=== PATIENT | female | born 1970 | race Caucasian/White ===

== ENCOUNTER 2017-04-25 09:00 | Outpatient (RCR) | payer OTHER, SELFPAY ==
--- NOTE | 2017-04-25 11:54 | HP.OTFCE_ITS ---
HP OT Functional Capacity Eval - Task Lift Floor (Occasional 1-33% of Day): 15 lbs Floor (Frequent 34-66% of Day): 8 lbs Floor (Constant 67-100% of Day): negligible Floor PDL: Sedentary-Light Knee (Occasional 1-33% of Day): 15 lbs Knee (Frequent 34-66% of Day): 8 lbs Knee (Constant 67-100% of Day): negligible Knee PDL: Sedentary-Light Waist (Occasional 1-33% of Day): 15 lbs Waist (Frequent 34-66% of Day): 8 lbs Waist (Constant 67-100% of Day): negligible Waist PDL: Sedentary-Light Shoulder (Occasional 1-33% of Day): 15 lbs Shoulder (Frequent 34-66% of Day): 8 lbs Shoulder (Constant 67-100% of Day): negligible Shoulder PDL: Sedentary-Light Overhead (Occasional 1-33% of Day): 15 lbs Overhead (Frequent 34-66% of Day): 8 lbs Overhead (Constant 67-100% of Day): negligible Overhead PDL: Sedentary-Light Comments: Katia exhibits poor body mechanics and has increased pain (typically R side). Safety concerns with some of the tasks. Further details can be seen in sections below. - Work Activity/Posture Bending: Occasional Ability (1-33% of day) Squatting: Occasional Ability (1-33% of day) Comments: poor mechanics and safety concerns Kneeling: No Ablility (0% of day) Comments: safety concerns Reaching out: Frequent Ability (34-66% of day) Reaching up: Frequent Ability (34-66% of day) Sitting: Frequent Ability (34-66% of day) Walking: Occasional Ability (1-33% of day) Comments: seated break every 4 mins; 1-15% of day. Standing: Occasional Ability (1-33% of day) - Reference Duration Sedentary Sedentary Light Light Light Medium Medium Medium Heavy Very Heavy Heavy Occasional (0-33% of day) Frequent (34-66% of day) Constant (67-100% of day) 10 # Negligible Negligible 15 # 8 # Negligible 20 # 10# Negli. 35 # 18 # 7 # 50 # 25 # 10 # 75 # 100 # >100 # 38 # 50 # >50 # 15 # 20 # >20 # - Patient Information Height: 1.68 m Weight:: 165 kg Hand Dominance: R - Medical History Medical History Including Restrictions: Notes no medical restrictions given by doctor. She is to do what she can per Pt. report. - Diagnoses Diagnoses: PMHx: chronic low back pain, cervical pain, spinal stenosis, dengenerative joint disease, sciatica (numbness of R leg), bulging discs at L1, rotator cuff surgery R shoulder, tendon surgery R shoulder, restless legs, osteoporosis, orthostatic hypotension and syncope, postural orthostaic tachycardia, neuropathy R leg. PMHx per Pt. report. - Symptoms Symptoms: Pt. noted pain symptoms pain in low back, neck , between shoulder blades, and B shoudler. She notes numbness in R LE over thigh and notes at times goes down calf. Further explains she has R sided neuropathy in LE. - Pain Pain: Pt. rated pain at 8/10 start of session. She noted pain is worse morning and night. She notes she cannot lay down to sleep. She sleeps in recliner and when reclined she notes pain is best. She did take pain meds prior to coming in for FCE. She noted she took oxycodon 8:15 am. Pain increased to 9, then 10/10 pain. Consistently educated to complete as tolerated. Tasks adapted so she could complete paced t/o session. Pain significant at this time. 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 She noted she quit nursing in 2010 due to pain and inability to complete work tasks. She notes she no longer felt safe. 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 - Behavioral Behavioral: Gabby became emotional during session because of pain. She was willing to participate in most tasks and consisently educated to complete tasks within pain tolerance. She notes pain prior to session starting at 8/10 with pain meds. Pain increased to 10/10 and then decreased at 9/10 by end of session. - ADLS ADLS: Pt. lives in house with in split level home. She notes 1 step to get into home with handrails on both sides. SHe then has 1 steps to get to first level and then 4 steps to get to second level for bedroom and bathroom. No bathroom on first floor. SHe notes (I) in ADLs and her and share cooking chores. She notes that it is dependent on the day for grocery shopping, laundry, and driving but it otherwise (I) with simple IADls at this time. She notes she needs to pace herself with all tasks. Katia shares pet care with . She explained she tries to walk yard/field but has increased pain at this time pain due to uneven surface. She is completeing walking (I) at this time. - Physical Examination Physical Examination: Pt, Katia, arrived for FCE on this date. She exhibits some R sided weakness and foot drop on occasion during fx mobility and other tasks. She noted PMHx of nueropathy in R LE in which foto drop appears could be related too. Pain is severe in LB and R hip and radiates down R LE. She exhibits balance G-/F+. She notes having recieved PT services through [facility] for back and neck. She would benefit from benefits specialist recruiter consult as pain is limiting QOL and fx at this time. She may benefit from vocational rehab in the future as she will not be able to return to nursing or jobs that require sustained standing or lifitng t/o the day based on today's performance. ROM: Pt. noted rotator cuff surgery 2006. B UE is WFL. She has decreased ROM on R UE due to PMH of rotator cuff. Shoulder flexion R 0-114, L 0-142; B UE WFL in all planes. B LUE WFL. Strength: B UE strength: deltoid: R 3+/5, L 4/5. bicep: R 4-/5, L 4/5. tricep : R 4-/5, L 4/5. wrist extensors: R 4/5, L 4/5. wrist flexors: R 4/5, L 4/5. B LE : Hip flexors: R 3+/5, L 4/5. Quadraceps: R 3+/5, L 4/5. hamstrings: R 3 +/5, L 4/5. hip abductors R 4-/5, L 4/5. hip adductors:R 4-/5, L 4/5. dorsiflexion: R 4+/5, L 4+/5. Pt. completed with right sided discrepancy. She is able to take minimal resistance prior to breaking. Notes increased pain with LE with resistance tasks. Pain rated 8.5/10 post MMT. Right Vacation Sales Advisor Strength Average: 54.66 Right Vacation Sales Advisor Strength Percentile: 13th Left Vacation Sales Advisor Strength Average: 68.33 Left Vacation Sales Advisor Strength Percentile: 36 th Right Lateral Pinch Average: 8.00 Right Lateral Pinch Percentile: below 10th Left Lateral Pinch Average: 10.00 Left Lateral Pinch Percentile: 25th Right Tripod Pinch Average: 11.00 Right Tripod Pinch Percentile: above 25th below 50th Left Tripod Pinch Average: 10.66 Left Tripod Pinch Percentile: above 25th below 50th Sensation: Notes numbness and tingling in R hand at times mostly to ring and pinky fingers. She notes numbness and tingling in R leg(mostly) and L leg when standing too long. Sensation for B UE is as follows through monofilament test: R 2nd 3.22 3rd 2.83 4th 3.61 5th 3.22 thumb 3.61 , L 2nd 2.83 3rd 2.83 4th 2.83 5th 2.83 thumb 2.83. Scores of 2.83 are normal and 3.22-3.61 indicate dimished light touch. Katia has slight decreased sensation of L hand but WFL at this time. Fine Motor: Pt. FMC is intact and WFL. 9 hole pegboard test R 22.43 (25th percentile) , L 28.36 (10th percentile). Balance: Pt. exhibits decreased balance when standing on R leg only. Balance is G/f+ and she ambulates without device at this time. - Non Material Handling Activities Bendinx, got light headed and needed seated break, 6x needed seated break due to back and notes head swimming. 10x fast with poor body mechanics due to compensations because of pain. Pain 10/10. Became emotional during task due to pain. Educated to complete within pain tolerance and take breaks as needed. verbalzied understanding. Squattinx, standing break. Needed use of external support of desk. Poor body mechanics with use of L lateral leaning of trunk and L UE to completed task. R UE not stable. Emotional due to pain. Pain noted at 10/10. Seated break needed. Kneeling: Pt. unable at this time. Completed 1x noted this is not going to be good. Needed to compensation with use of desk to move to upright postion. Reaching out/up: From seated position: Reaching out: 3x, 10x, 10x fast. Pain in cervical region and shoulder 6/10. Reaching Up: 3x, 10x, 10x fast. Pain in cervical region and shoulder 6/10. Pt. noted R sided weakness post task. Walking: Pt. completed approximately 15 mins walk. She was able to complete 4 mins consistent walking before needing seated 2-3 mins break. She needed 4 seated breaks (3 t.o session and 1x at end of session) throughout walking atsks. She exhibits increased inward rotated gait mimicking pigeon toes. She exhibits decreased pace and antalgic gait. At times R foot appears to to have some foot drop due to neuropathy. Standing: Approximately 4-6 mins from clinical judgment with seated breaks as needed. She is able to complete 4 of dyn standing tasks for fx mobility. She was in 9-10/10 pain at end of session and noted pain was too severe to complete at this time. Sitting: Pt. able to sit for 35- 40 mins with weight shifts as needed. Notes restless leg syndrome. She noted discomfort but compensationed as needed. Climbing Stairs: Pt. completed 1x10 stairs acend and decend. She completed with alternating foot pattern with use of B handrails. needed cues for awareness of R foto as foot drop and dragging which Pt. notes is due to neuropathy. R foot is safety concern at this time. - Dynamic Occasional Lifting Capacity Floor Lift: 15 lbs. Poor body mechanics when lifting as exhibited through extend UE and LE for task completion. She had increased pain. Knee Lift: 15 lbs. Fair body mechanics. She has increased pain 9/10. Pain limiting at this time. Waist Lift: 15 lbs. Fair body mechanics. She has increased pain 9/10. Pain limiting at this time. Shoulder Lift: 15 lbs. Fair body mechanics. She has increased pain 9/10. Pain limiting at this time. Overhead Lift: 15 lbs. Poor body mechanics as compensations noted through holding breath, increased trunk flexion, and leaning to R side to increased force with L UE. She has increased pain /. Pain limiting at this time. Standing break at end of session. Carryin lbs. Fair body mechanics. She has increased pain 11/28. Pain limiting at this time. Comments: Pain at end of session after seated break while finishing assessment at 11/28. R LE numbness and hip pain. Needed to complete tasks alternating UE vs LE demand to promote completion and help manage pain. Pain significat at start of session at 10/28. She scored at the light sedentary work category for all tasks. She would potentially benefit from further medical follow up for spine as pain is limiting at this time.
--- NOTE | 2017-04-25 11:54 | HP.OTFCE.D ---
FCE D/C Summary - Discharge LUCINA BAILEY was seen for a one time visit for an FCE on 04/25/17 and is discharged.
== END 2017-04-25 19:00 | disposition home or self-care (01) ==
LOC: OT 09:00
PROVIDERS: Family Provider Preventive Medicine Occupational Medicine; PCP Preventive Medicine Occupational Medicine; Visit Provider Anesthesiology Pain Medicine
DX: M54.9 Dorsalgia, unspecified (principal); M79.606 Pain in leg, unspecified
CPT/HCPCS: 97750

== ENCOUNTER 2017-04-26 10:12 | Emergency (ER) | payer OTHER, SELFPAY ==
[2017-04-26 10:15] VITALS: BP 131/76; PULSE 76; RESP 18; TEMP 37; O2SAT 97; BMI 28.4
--- NOTE | 2017-04-26 10:36 | RAD_ITS ---
STUDY: X-RAY - CERVICAL SPINE REASON FOR EXAM: Female, 47 years old. Back pain following a fall. TECHNIQUE: 3 view(s) of the cervical spine were obtained. COMPARISON: None FINDINGS: Normal anterior atlantoaxial articulation. Normal odontoid process. Normal cervical lordosis. Normal vertebral bodies and endplates. Mild degree of disc space narrowing at the C6-C7 level. Normal visualized intervertebral neuroforamina. The soft tissue structures are unremarkable. RAD/Cerv Spine 2 or 3 Views IMPRESSION: Mild degree of disc space narrowing at the C6-C7 level. Electronically Signed: Layton Yan MD at 12:23 EST Tel [phone], Service support ,
--- NOTE | 2017-04-26 10:36 | RAD_ITS ---
STUDY: X-RAY - THORACIC SPINE REASON FOR EXAM: Female, 47 years old. Back pain following a fall. TECHNIQUE: 3 view(s) of the thoracic spine were obtained. COMPARISON: None. FINDINGS: Normal kyphosis of the thoracic spine. There is no substantial scoliosis. Normal thoracic vertebrae and endplates. There is multilevel disc space narrowing of the thoracic spine. The soft tissue structures are unremarkable. RAD/Thoracic Spine 3 Views IMPRESSION: Multilevel disc space narrowing. Electronically Signed: Layton Yan MD at 12:25 EST Tel [phone], Service support ,
--- NOTE | 2017-04-26 10:36 | RAD_ITS ---
STUDY: X-RAY - LUMBAR SPINE REASON FOR EXAM: Female, 47 years old. Back pain and hip pain following a fall. TECHNIQUE: 3 view(s) of the lumbar spine were obtained. COMPARISON: None FINDINGS: There is straightening of the normal lumbar lordosis. There is no substantial scoliosis. There is a normal alignment of the vertebrae. There is multilevel endplate spondylosis of the lumbar vertebrae. There is multi-level degenerative disc disease with multi-level disc space narrowing. The soft tissue structures are unremarkable. RAD/Lumbar Spine 2 or 3 Views IMPRESSION: Degenerative changes of the spine, as detailed above. Straightening of the normal lumbar lordosis. Electronically Signed: Layton Yan MD at 12:23 EST Tel [phone], Service support ,
[2017-04-26] MEDS: Ondansetron 4 MG/2 ML Vial IV (10:52)
--- NOTE | 2017-04-26 11:11 | ED.VISSUMM ---
- ER Visit Summary Date of Service: 04/26/17 Chief Complaint: Syncopal so and fall down 5 steps History of Present Illness: The patient is a 47 F resents this morning because of neck, back and face pain status post fall. She has history of tachycardia and malignant orthostatic hypotension. She had a positive table tilt test 8 years ago at [facility]. She was placed on beta-lucina and instructed to generously apply salt to her food. There was no postictal state according to patient and and there was no seizure activity. She complains of facial pain. She does complain of slight headache. She denies nausea, vomiting or diarrhea. She denies any paresthesia, anesthesia or motor weakness present at time of the injury. She does complain of bruising, abrasions and upper extremity discomfort and specifically right shoulder and arm. She denies any chest pain or difficulty breathing. She denies any change in the color of her urine. She has not had a syncopal episode since September. She denies any black or bloody stool. She has had frequent episodes when she is dehydrated. She states she urinated this morning and did not notice any change in the color of her urine and states she urinated a normal volume. Her last tetanus update was less than 5 years ago. Physical Examination: Patient has multiple contusions and abrasions to the right side of face, right upper extremity and left forearm. Pupils are equal round reactive. Extra muscle intact. Funduscopic exam reveals no papilledema. There is no hemotympanum. There is no CSF otorrhea rhinorrhea. She has no palpable depression. There is no step-off with palpation the infraorbital rim nor is there any hypoesthesia the infra orbital nerve. There is no evidence of entrapment. There is no septal deviation hematoma. There is no evidence of malocclusion. She does not have midline neck pain. She has bilateral trapezius discomfort and pain to palpation over the lower dorsal upper lumbar spine. There is no pain the patient over the chest or ribs. There is no crepitus subcutaneous air. Abdomen is soft nontender with no paraspinal megaly. She has no CVA tenderness noted. There is no pain the patient of the pelvis. There is no evidence of trauma to lower extremity. She has contusion and abrasion to the right shoulder and arm. She has full active range of motion. There is a scar secondary to prior rotator cuff repair. Axillary, median, radial and ulnar function intact. GCS is 15. Patient is alert and oriented ?3. Motor is 5/5. Sensation is intact. DTRs are 2+ and symmetric without clonus or Babinski. Cranial nerves II through XII are intact. Finger to nose to finger was performed adequately. Test Results: 3 views of the cervical spine were obtained and are unremarkable for any acute abnormality. There is no evidence of fracture, subluxation or dislocation. There is no significant arthritic changes noted either. Two-view x-ray of the thoracic spine was obtained and there is slight loss of height at T6. There are no old films for comparison. This may represent a compression fracture. Three-view x-ray of the lumbar spine was obtained and there is no acute abnormality. There is minimal arthritic changes noted. Emergency Department Course and Treatment: X-ray of the thoracic and lumbar spine were ordered to evaluate for fracture. Patient was medicated with opiate analgesia. She requested muscle relaxant. She was informed that muscle relaxants are no true value. Treatment Plan: Patient was treated with morphine. I was informed by her nurse at 1134 that she still has 10 out of 10 pain. She received an additional dose of morphine and anti-inflammatory there is no contraindication. Since she is in pain management will not write for home meds. She will need to follow-up with her pain management physician. Of note she is on OxyContin. Disposition: Discharge to home with appropriate home-going instructions Impression: 1. Neurogenic syncope/orthostatic hypotension 2. History of tachycardia 3. Paracervical/trapezius muscle strain secondary to fall initial encounter 4. Possible T6 compression fracture of indeterminate age 5. Lumbar contusion/strain secondary to fall initial encounter 6. Facial contusion and abrasion secondary to fall 7. Right upper extremity contusion and abrasion secondary to fall This note was generated with [employer] dictation software. It may contain incorrect words, spelling, and punctuation that were not noted in review of the chart prior to signing ED Disposition - Plan for ED Patient: Disposition: Home or Assisted Living Chief Complaint: Fall Instructions: ED Sprain Strain Neck, ED Sprain Strain Lumbar, ED Fx Comp Vertebral, ED Abrasion, ED Contusion Face Referrals: Chad Lui DO [Primary Care Provider] - 1 Week if not improving Additional Instructions: Apply ice 20-30 minutes at a time 6-8 times a day for the next 3-5 days. In addition to the pain medicine that Dr. Ventura prescribed you recommend taking 4 Advil every 8 hours for the next 3-5 days. Unfortunately, you may feel worse over the next day or 2, and you may hurt for several days.
--- NOTE | 2017-04-26 11:40 | ED.RN ---
DR. GALVAN AWARE OF PT'S PAIN.
[2017-04-26] MEDS: Ketorolac 30 MG/ML Syringe IV (11:47)
[2017-04-26 12:12] VITALS: BP 107/78; PULSE 74; RESP 25; O2SAT 93
--- NOTE | 2017-04-26 13:17 | ED.RN ---
REVIEWED D/C INSTRUCTIONS, FOLLOW UP CARE, AND S/S THAT WOULD WARRANT A RETURN TO THE ED WITH PT. PT VERBALIZED AN UNDERSTANDING AND DENIES FURTHER QUESTIONS FOR THIS RN. PT SKIN P/W/D, RESP EVEN AND UNLABORED, PT A&O X 3, NO DISTRESS NOTED. PT ASSISTED OUT OF ED IN WHEELCHAIR.
[2017-04-26 13:18] VITALS: BP 107/78; PULSE 77; RESP 18; O2SAT 95
== END 2017-04-26 13:19 | disposition home or self-care (01) ==
PROVIDERS: Emergency Provider Emergency Medicine; Family Provider Preventive Medicine Occupational Medicine; PCP Preventive Medicine Occupational Medicine
DX: I95.1 Orthostatic hypotension (principal); S01.01XA Laceration without foreign body of scalp, initial encounter; S16.1XXA Strain of muscle, fascia and tendon at neck level, initial encounter; S46.811A Strain of other muscles, fascia and tendons at shoulder and upper arm level, right arm, initial encounter; S39.012A Strain of muscle, fascia and tendon of lower back, initial encounter; S00.83XA Contusion of other part of head, initial encounter; S40.021A Contusion of right upper arm, initial encounter; W10.9XXA Fall (on) (from) unspecified stairs and steps, initial encounter; Y93.9 Activity, unspecified; Y92.9 Unspecified place or not applicable; Y99.9 Unspecified external cause status; Z72.0 Tobacco use; Z79.899 Other long term (current) drug therapy
CPT/HCPCS: 12001; 72040; 72072; 72100; 96374; 96375; 96376; 99284; J2405

== ENCOUNTER → 2017-05-26 16:44 | Outpatient (CLI) | payer OTHER, SELFPAY ==
--- NOTE | 2017-05-26 16:47 | CT_ITS ---
STUDY: CT THORACIC SPINE WITHOUT CONTRAST REASON FOR EXAM: Female, 47 years old. Trauma RADIATION DOSAGE (If Supplied By Facility): CTDIvol = ( 18.42 ) mGy, DLP = ( 618.03 ) mGycm TECHNIQUE: The patient was scanned in a multi detector CT scanner. High resolution imaging was performed. Images were obtained through the thoracic spine. Sagittal and coronal images were reconstructed. Individualized dose optimization techniques were used for this CT. COMPARISON: None available. FINDINGS: There is no evidence of fracture or dislocation in the thoracic spine. The vertebral body heights are well-maintained. There are mild degenerative changes. There is a moderate hiatal hernia noted. CT/Spine Thoracic without Contras IMPRESSION: No fracture or dislocation in the thoracic spine. Mild degenerative change. Moderate hiatal hernia. Electronically Signed: Robbin Waters, at 20:48 EST Tel , Service support ,
== END ==
PROVIDERS: Family Provider Preventive Medicine Occupational Medicine; PCP Preventive Medicine Occupational Medicine; Visit Provider Anesthesiology Pain Medicine
DX: Z91.81 History of falling (principal)
CPT/HCPCS: 72128